=== PATIENT | female | born 1995 | race African-American/Black ===

== ENCOUNTER 2018-05-07 19:17 | Emergency (ER) | payer OTHER ==
[2018-05-07] MEDS ORDERED: Pseudoephedrine TAB* 60 MG PO ONE (22:09)
[2018-05-07] MEDS ORDERED: Albuterol HFA INHALER* 8 gm MDI INH ONE (22:09)
--- NOTE | 2018-05-07 22:11 | ED ---
Throat Pain/Nasal Congestion - History of Current Complaint Chief Complaint: EDThroatPain Time Seen by Provider: 05/07/18 21:45 Hx Obtained From: Patient, Family/Cement [employer]er - female friend - Allergies/Home Medications Allergies/Adverse Reactions: Allergies Allergy/AdvReac Type Severity Reaction Status Date / Time pineapple Allergy Hives Verified 05/07/18 19:30 strawberry Allergy Hives Verified 05/07/18 19:30 Home Medications: Home Medications NK [No Home Medications Reported] 05/07/18 [History Confirmed 05/07/18] PMH/Surg Hx/FS Hx/Imm Hx Infectious Disease History: No Infectious Disease History: Denies: Traveled Outside the [place] in Last 30 Days - Social History Alcohol Use: Occasionally Substance Use Type: Reports: None Smoking Status (MU): Never Smoked Tobacco Physical Exam Vital Signs On Initial Exam: Initial Vitals Temp Pulse Resp BP Pulse Ox 98.6 F 83 16 124/73 100 05/07/18 19:26 05/07/18 19:26 05/07/18 19:26 05/07/18 19:26 05/07/18 19:26 Diagnostics - Vital Signs Vital Signs Temp Pulse Resp BP Pulse Ox 05/07/18 19:26 98.6 F 83 16 124/73 100 - Laboratory Lab Results: Lab Results 05/07/18 05/07/18 Range/Units 21:31 21:34 Influenza A (Rapid) Negative (Negative) Influenza B (Rapid) Negative (Negative) Group A Strep Rapid Negative (Negative) Lab Statement: Any lab studies that have been ordered have been reviewed, and results considered in the medical decision making process. Discharge - Sign-Out/Discharge Documenting (check all that apply): Patient Departure - Discharge Plan Condition: Stable Disposition: HOME Patient Education Materials: Upper Respiratory Infection (ED), Asthma (ED), Pharyngitis (ED) Referrals: Care [facility] [Outside] - Billing Disposition and Condition Condition: STABLE Disposition: Home
[2018-05-07] MEDS ORDERED: Pseudoephedrine TAB* 30 MG PO ONE (22:30)
[2018-05-07 22:42] VITALS: BP 115/71
== END 2018-05-07 22:41 | disposition home or self-care (01) ==
LOC: ED 19:17
DX: R07.0 Pain in throat (principal)
CPT/HCPCS: 36415; 86308; 87651; 99282; A9270-GY